=== PATIENT | male | born 1975 | race Caucasian/White ===

== ENCOUNTER 2017-03-09 18:44 | Emergency (ER) | payer BC ==
--- NOTE | 2017-03-09 19:42 | EDPHY ---
General - History Smoking Status: Never smoked Narrative: CHIEF COMPLAINT: Left forearm laceration HISTORY OF PRESENT ILLNESS: Patient was skateboarding today when he fell, catching a screw on the left anterior forearm. He sustained a laceration to the left forearm that is jagged and irregular. Minimal pain associated with. He immediately irrigated home. He applied a butterfly dressing to it. He has no pain at this time. He has no pain distal to the injury. No numbness, paresthesia or motor changes distally. Tetanus is updated list any ago from a previous injury. No other areas of injury. No LOC. No other associated complaints or modifying factors. REVIEW OF SYSTEMS: Ten systems reviewed and are negative unless otherwise noted in the HPI EXAMINATION General Appearance: Alert, no distress Cardiovascular: Pulses normal throughout. Symmetric radial pulses are 2+. Brisk cap refill Neurological: A&O, sensory symmetric, strength symmetric. No wrist drop. Full strength of left elbow, wrist, hand interossei Skin: Warm and dry, no rash. 6 cm total area of laceration left forearm. This is anterior. It is jagged and irregular with v-shaped centrally. No compromise of the fascia of the forearm musculature. No foreign body appreciated neurovascular intact distal to the injury Extremities: Minimal tenderness over the left forearm laceration. Range of motion of the left elbow, wrist, hand and fingers are fully intact with excellent strength. Psychiatric: Mood and affect normal DIFFERENTIAL DIAGNOSES: Including but not limited to forearm laceration, laceration, contusion, soft tissue injury MDM: 7:20 p.m. Laceration to the left forearm that was caused by a screw. He has a jagged, v- shaped laceration with a non uniform pattern of laceration. No compromise of the fascia forearm musculature. No bony tenderness. No pain at rest. I have injected local anesthesia. We will proceed with copious irrigation and closure. 8:20 p.m. Left forearm laceration that has been irrigated and repaired. There was no foreign body. Hemostasis was excellent. Wound approximation was excellent. He tolerated well without complication. He remains neurovascular intact post procedure. I discuss wound care for him. Recommend that he return in 7-10 days for suture removal. Additionally we will give him Augmentin for prophylaxis PROCEDURE: Laceration repair Consent: Verbal Location: Left forearm, anterior Length of repair: 6 cm total, jagged with avulsion Complexity: Moderate Layer involvement: Single Anesthesia: Local. 7 mL of 1% lidocaine plain and 0.25% Marcaine Irrigation: Extensive Debridement: Some minimal Procedure description: After good anesthesia the wound was copiously irrigated. I do not appreciate any foreign body. Wound was then closed with simple interrupted sutures. Good approximation. Tolerated well. No complication. Good hemostasis. Suture/Staple material:4-0 Prolene, 11 simple interrupted sutures Wound care: Routine as discussed Suture/Staple removal: 7-10 Days ED Precautions: Worsening pain. Erythema, edema, cyanosis, pallor, paresthesia or anesthesia. SUPERVISION: This patient was independently evaluated without direct examination by the attending physician. Case was discussed with attending physician. (Geoff Bowman) Discussion: The patient wasevaluatedand managed by themidlevel provider. My co- signature indicates that Ihkarissa reviewed this chart and I agree with the findings and plan of care asdocumented. I am the secondary supervising physician. (Jayda Holliday) - Objective Vital Signs: Initial Vital Signs Temperature (C) 36.4 C 03/09/17 18:48 Heart Rate 60 03/09/17 18:48 Respiratory Rate 20 03/09/17 18:48 Blood Pressure 131/77 H 03/09/17 18:48 O2 Sat (%) 96 03/09/17 18:48 O2 Delivery Mode Room Air Allergies/Adverse Reactions: No Known Allergies Allergy (Unverified 03/09/17 18:47) Home Medications: Medication Instructions Recorded Amoxicillin/Clavulanate Pot 875 mg PO BID #20 tab 03/09/17 [Augmentin 875 MG TAB (*)] Medications Given: Discontinued Medications Amoxicillin/Clavulanate Potassium (Augmentin 875mg) 875 mg PO EDNOW ONE PRN Reason: Protocol Stop: 03/09/17 20:21 Last Admin: 03/09/17 20:24 Dose: 875 mg Departure - Departure Disposition: Home, Routine, Self-Care Clinical Impression: Forearm laceration Condition: Good Instructions: Care For Your Stitches (ED), Laceration (ED) Additional Instructions: Wound care as discussed. Return to the ER in 7-10 days for suture removal. Return sooner for signs or symptoms of infection as discussed. Referrals: STAR ARAGON MD [Other] - As per Instructions Prescriptions: Amoxicillin/Clavulanate Pot [Augmentin 875 MG TAB (*)] 875 mg PO BID #20 tab
[2017-03-09] MEDS ORDERED: AMOXICILLIN/CLAVULANATE POT 875/125 MG TAB PO ONE (20:20)
[2017-03-09 20:34] VITALS: BP 119/68; PULSE 65; RESP 16; TEMP 98.1; O2SAT 94
== END 2017-03-09 20:34 | disposition home or self-care (01) ==
PROC: 0HQEXZZ Repair Left Lower Arm Skin, External Approach (ICD-10-PCS; principal; 2017-03-09)
DX: S51.812A Laceration without foreign body of left forearm, initial encounter (principal); V00.131A Fall from skateboard, initial encounter; Y93.51 Activity, roller skating (inline) and skateboarding